=== PATIENT | female | born 1990 | race African-American/Black ===

== ENCOUNTER 2020-09-28 11:46 | Inpatient (IN) | payer OTHER ==
[~2020-09-28] VITALS: Ht 157.5 cm; Wt 78.1 kg
[2020-09-28] MEDS ORDERED: STUACAP PO (12:02)
[2020-09-28] MEDS: LR 1,000 ML IV SCH (12:10)
[2020-09-28] MEDS ORDERED: PENICILLIN G POTASSIUM IV 5 MU in D5W MINI-BAG PLUS 100 ML IV STA (12:17)
[2020-09-28 12:50] VITALS: BP 111/63
[2020-09-28 13:12] LABS: HEMATOCRIT 41.5 % (36.0-47.0); HEMOGLOBIN 13.5 g/dl (12.0-15.5); MEAN CORPUSCULAR HEMOGLOBIN 27.6 pg (27.0-33.0); MEAN CORPUSCULAR HGB CONC 32.5 g/dl (32.0-36.5); MEAN CORPUSCULAR VOLUME 84.9 fl (80.0-96.0); PLATELET COUNT, AUTOMATED 259 10^3/uL (150-450); RED BLOOD COUNT 4.89 10^6/uL (4.00-5.40); WHITE BLOOD COUNT 10.4 10^3/uL (4.0-10.0)
--- NOTE | 2020-09-28 13:47 | HPEPDOC ---
Obstetrical History & Physical General Date of Admission Sep 28, 2020 at 11:46 History of Present Illness 30yo A1GDM admitted directly form clinic for gestational diabetes with unknown control, limited care in the third trimester, declined NST, BPP 2/8, ANTOLIN 11.0, cephalic presentation. Chief Complaint: Induction of labor, Other (Gestational Diabetes with unknown control, GBS unknown, limited care in the third trimester) Information Provided By: Patient Age: 30 : 3 Term: 2 Pre-term: 0 Abortions: 0 Livin Care Care: Other (Routine care completed through 34 weeks gestation, ap propriate f/u in third trimester and diabetes screening ) Dating Final EDC: Sep 26, 2020 Final EDC for Daily Update: Sep 26, 2020 Final EDC by: LMP LMP: Dec 21, 2019 EGA at Admission: 40 (+2) Antepartum Course Diagnos(e)s Gestational diabetes with unknown control, GBS unknown Height (inches): 62 Pre- weight (lbs.): 144 Admission Weight (lbs.): 172 Change in Weight (lbs.): 28 Past Medical History Past Obstetrical History #1: Past Obstetrical History: Multigravida Date of Delivery: Nov 27, 2017 Gestation: 39 Type of Delivery: Spontaneous Vaginal Del. 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, History of STD (chlamydia treated 2009, gonorrhea) Past Medical History Medical History depression, recurrent pilonidal cyst Surgical History: Other (left knee arthroscopy) Family History Significant Family History: No pertinent family hx Social History Marital Status: Family situation: Spouse/partner home Psychosocial History: Depression * Smoker: non-smoker Alcohol: Denies Drugs: denies Abuse Violence Screening Have you been hit/kicked/slapp: No Have you been sexually assault: No Imunizations Tdap status: current Influenza Status: needs Allergies Coded Allergies: Sulfa (Sulfonamide Antibiotics) (Verified Allergy, Mild, hives, 09/28/20) Medications Miscellaneous Medications Pnv No.63/Iron,Carb/Folic/Dha (Miles One Capsule) 1 Each Capsule, 1 CAP PO Physical Examination Physical Examination GENERAL: Alert and oriented times three. BREAST: . ABDOMEN: Gravid and non-tender to touch. FETUS: Is vertex (VTX) by sterile vaginal examination (SVE), fetus is vertex (VTX) by Angel. HEART RATE: Regular rate and rhythm. LUNGS: Clear to auscultation (CTA). EXTREMITIES: No edema. No clonus. Other physical findings EFW 3700gm by miguel Laboratory Data 24H LABS Laboratory Tests 2 09/28/20 12:14: Bedside Glucose (Misc Panel) 106H 09/28/20 12:28: Serology Scanned Report Hepatitis B Testing Pertinent Laboratoy Data Blood Type: A+ RBC Antibody Screen: Negative HIV: Negative Hepatitis B: Negative Rapid Plasma Reagin: Nonreactive Rubella: Immune Varicella: Immune Chlamydia/Gonorrhea: Negative Group B Streptococcus: Unknown Cystic Fibrosis: Negative Anatomy Ultrasound Ultrasound Date: Aug 17, 2020 Placenta Location: Anterior Normal Anatomy: Yes Placenta Previa: No Estimated Weight (grams): 2187 Steroid Therapy Steroid Therapy: No Vaginal Examination Dilation: 4 cm Effacement: 70% Station: -3 Cervical Consistency: Medium Cervical Position: Posterior Presentation: Cephalic presentation Assessment Variability: Moderate Accelerations: Positive Decelerations: Variable Tocometer Contractions: Yes Frequency: irregular Duration: greater than 60 seconds Strength: palpated as mild, resting tone palp/soft Multi-drug resistant Organism: No history of MDRO Assessment/Plan Assessment Cindy is a 30-year-old (G)3 para (P)2-0-0-2 at 40+2 weeks by LMP. Presents to Labor and Delivery (L&D) for direct admission for IOL for GDM with unknown control and BPP 2/8. Plan Admit and orient. 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 Diet: diabetic, then clear liquids with IOL. Group B Streptococcus (GBS) unk, initiate GBS prophylaxis. Labs and intravenous (IV) per unit protocol, bedside finger stick, HA1C on admission. Counseled on Pitocin and induction of labor (IOL). Lactated Ringers (LR): 125 mL/hr. Anticipate [normal spontaneous delivery ()]. Continuous efm x2, monitor fo change in or maternal status. May eat a light lunch prior to initiating pitocin. Initiate pitocin induction and titrate per protocol. C-S as appropriate. Labor and Delivery Counseling Patient counseled on indication for induction, methods of induction, rationale for monitoring glucose, need for monitoring infant after delivery for transition. Pt expressed understanding of instructions and consent for induction. MAU WOLF CNM Sep 28, 2020 13:47
[2020-09-28] MEDS ORDERED: OXYTOCIN DRIP 30 UNITS in IV 1 EA IV SCH ×2 (14:00→23:24)
[2020-09-28 15:19] VITALS: BP 105/66
[2020-09-28 15:59] VITALS: BP 128/74
--- NOTE | 2020-09-28 16:00 | REP ---
INDICATION: GROWTH US. Patient being induced. COMPARISON: None. TECHNIQUE: Transabdominal obstetric sonography. FINDINGS: Scanning through the gravid uterus demonstrates a viable single intrauterine gestation in cephalic lie. motion is observed and heart rate is recorded at 153 beats per minute. A anterior placenta is seen, grade 3, without evidence of placenta previa. Amniotic fluid is subjectively normal. Closed cervical length could not be measured due to low head position. Amniotic fluid is subjectively normal. ANTOLIN is normal at 12.7 cm.. No extrauterine abnormality is observed. The following anatomic structures are identified today and felt to be unremarkable: diaphragm, left-sided stomach, abdominal wall cord insertion, kidneys and urinary bladder, three-vessel cord. head measurements are felt to be suboptimal due to low position.. Biometry chart: BPD 9.3 cm, 37 weeks 4 days Head circumference 33.0 cm, 37 weeks 4 days Abdominal circumference 36.3 cm, 40 weeks 1 day Femur length 8.0 cm, 41 weeks 0 days Humeral length 6.9 cm, 39 weeks 6 days HC AC ratio normal 0.91 Cephalic index normal 0.80 Estimated weight 3856 g, 8 lb 8 oz, 87th percentile for 40 weeks 2 days SD ratio in the umbilical cord artery by Doppler normal, 2.21 IMPRESSION: Viable single intrauterine gestation at 39 weeks 2 days by today's composite sonographic criteria. BURKE by today's sonography October 03, 2020. No complication identified. Estimated weight in the 87th percentile. <Electronically signed by Ron Wilder > 09/28/20 [id number]
[2020-09-28] MEDS ORDERED: PENICILLIN G POTASSIUM IV 2.5 MU in IV 1 EA IV SCH ×2 (16:30→20:30)
[2020-09-28] MEDS ORDERED: FLEET ENEMA PR PRN (17:45)
[2020-09-28 18:13] VITALS: BP 118/65
[2020-09-28 18:54] VITALS: BP 128/66
--- NOTE | 2020-09-28 18:54 | IPNPDOC ---
Obstetrical Progress Note Date of Service Sep 28, 2020 Subjective Pt c/o rectal pressure and discomfort with contractions Objective Vital Signs Date Time Temp Pulse Resp B/P (MAP) Pulse Ox O2 Delivery O2 Flow Rate FiO2 09/28/20 18:13 98.4 117 18 118/65 (82) Room Air Assessment Heart Rate (FHR): 140 Variability: Moderate Accelerations: Positive Decelerations: Early Tocometer Contractions: Yes Frequency: regular (q1-5 min, coupling noted on 6mu pitocin) Duration: greater than 60 seconds Strength: palpated as moderate Sterile Vaginal Examination Dilation: 5 cm Effacement (%): 80% Station: -3 Cervical Consistency: Medium Cervical Position: Posterior Postion/Presentation: Cephalic presentation Assessment and Plan Age: 30 : 3 Term: 2 Pre-term: 0 Abortions: 0 Livin EGA at Admission: 40 (+2) Status: Reassuring Group B Streptococcus: Unknown Anticipate: Vaginal Delivery Additional Comments Hard stool palpated through the vaginal wall on exam. Pt states difficulty passing stool and discomfort. Reviewed options for care, patient desires an enema. lr @125ml/hr, continuous efm x2, continue pitocin induction and titrate per protocol, monitor for change in or maternal status, provide fleets enema x1 prn constipation, continue GBS prophylaxis, evaluate for change as indicated, consider AROM, anticipate vaginal delivery MAU WOLF CNM Sep 28, 2020 18:54
--- NOTE | 2020-09-28 19:54 | IPNPDOC ---
Obstetrical Progress Note Date of Service Sep 28, 2020 Subjective Pt c/o increased discomfort with contractions, pressure and bloody show Objective Vital Signs Date Time Temp Pulse Resp B/P (MAP) Pulse Ox O2 Delivery O2 Flow Rate FiO2 09/28/20 18:54 98.7 127 18 128/66 (86) Room Air Assessment Heart Rate (FHR): 130 Variability: Moderate Accelerations: Positive Decelerations: None Tocometer Contractions: Yes Frequency: regular, every 2-2 min. (on 10mu pitocin) Duration: greater than 60 seconds Strength: palpated as strong Sterile Vaginal Examination Dilation: 6 cm (arom clear with exam) Effacement (%): 80% Station: -2 Cervical Consistency: Soft Cervical Position: Posterior Postion/Presentation: Cephalic presentation Assessment and Plan Age: 30 : 3 Term: 2 Pre-term: 0 Abortions: 0 Livin EGA at Admission: 40 (+2) Status: Reassuring Group B Streptococcus: Unknown Anticipate: Vaginal Delivery Additional Comments lr@125 ml/hr, continue pitocin augmentation per protocol, continue gbs prophylaxis, continuous efm x2, monitor for change in or maternal status, encourage maternal movement, anticipate vaginal delivery. MAU WOLF CNM Sep 28, 2020 19:54
[2020-09-28] MEDS ORDERED: **PENDING PCN ENTRY XX SCH (21:00)
[2020-09-28] MEDS ORDERED: FENTANYL 2MCG/ML ROPIVACAINE 0.2% IN 0.9% NACL 100ML IVBAG As Ordered ONE (21:44)
--- NOTE | 2020-09-28 21:54 | IPNPDOC ---
Obstetrical Progress Note Date of Service Sep 28, 2020 Subjective Pt c/o increased pain and pressure with urge to push Objective Vital Signs Date Time Temp Pulse Resp B/P (MAP) Pulse Ox O2 Delivery O2 Flow Rate FiO2 09/28/20 18:54 98.7 127 18 128/66 (86) Room Air Assessment Heart Rate (FHR): 140 Variability: Moderate Accelerations: Positive Decelerations: Variable Tocometer Contractions: Yes Frequency: every 1-3 min. (on 12mu pitocin) Duration: greater than 60 seconds Strength: palpated as strong Sterile Vaginal Examination Dilation: 8 cm (OP presentation) Effacement (%): 90% Station: -2 Cervical Consistency: Soft Cervical Position: Posterior Postion/Presentation: Cephalic presentation Assessment and Plan Age: 30 : 3 Term: 2 Pre-term: 0 Abortions: 0 Livin EGA at Admission: 40 (+2) Status: Reassuring Group B Streptococcus: Unknown Anticipate: Vaginal Delivery Additional Comments Pt questioning options for pain. reviewed continued comfort measures, iv pain medication, and epidural anesthesia. Pt expressed consideration for epidural. IV fluid bolus initiated by nursing staff. Pt assisted with several position changes to facilitate rotation and decent over 25 minutes. Pt positioned in Welchers and coached through contractions, then rotated to an exaggerated right lateral position. Patient then called out with a request for epidural. Continue pitocin augmentation, lr @125ml/hr, continuous efm x2, monitor for change in or maternal status, may have epidural anesthesia as desired, evaluate for change as indicated, anticipate vaginal delivery MAU WOLF CNM Sep 28, 2020 21:53
[2020-09-28 23:24] LABS: CORD GAS ABE A -8.5; CORD GAS ABE V -6.5; CORD GAS HCO3 V 21.4 MEQ/L; CORD GAS O2 SAT A 65.5 %; CORD GAS O2 SAT V 83.4 %; CORD GAS PCO2 V 51.4 mmHg; CORD GAS PH A 7.098 UNITS; CORD GAS PH V 7.237 UNITS; CORD GAS PO2 A 37.3 mmHg; CORD GAS PO2 V 46.8 mmHg; CORD GAS SBC V 18.9 MEQ/L; CORD GAS TCO2 A 25.3 MEQ/L
--- NOTE | 2020-09-28 23:24 | DNPDOC ---
[facility] Delivery Note Delivery Note DATE OF DELIVERY: [id number] PREDELIVERY DIAGNOSIS: 40-1/7 weeks' gestation and labor. POST DELIVERY DIAGNOSIS: Delivered. PROCEDURE: Spontaneous vaginal delivery. SKETCHER: Khloe Wolf ANESTHESIA: epidural. ESTIMATED BLOOD LOSS: 450 mL. FINDINGS: 8 pound 10 ounce female infant Michele, Score 2//9, no nuchal cord, shoulder dystocia. DELIVERY SUMMARY: Patient is a 30-year-old 3 now para 3-0-0-3 who was admitted to labor and delivery for IOL for BPP 12/06. Pt c/o uncontrollable pushing after epidural placement and was found to be C/C/0. Brisk decent was made to with maternal pushing efforts then a slowing of the head was noted. Additional nursing staff was called in preparation. The head delivered in OA with restitution to JAH. The patient was positioned in Karen without improvement. Suprapubic was applied directionally and the woodscrew maneuver attempted. Dr. Jaramillo was called to the room for additional assistance as an attempt was made to deliver the posterior arm. Dr. Jaramillo was able to deliver the posterior shoulder and arm successfully. The anterior shoulder delivered easily followed quickly by the corpus. The female infant was placed immediately on the maternal abdomen, the cord clamped x2 and cut by RAULITO. The was then passed to the waiting nursing team for NRP. Cord gasses were collected and sent. Pitocin infusion was initiated per protocol. The placenta delivered spontaneously intact in Benoit presentation with an initial moderate amount of bleeding and trailing membranes and significant calcification noted. The cervix was swept for an additional small portion of membranes and a clot, the fundus massaged until firm. A small second degree midline laceration was noted on evaluation. The laceration was repaired using 3-0 vicryl with the Angeles method. An additional sweep of the vagina and cervix was completed for several small clots. The fundus firmed appropriately. Cindy entered the recovery phase in stable condition. KHLOE WOLF CNM Sep 28, 2020 23:24
[2020-09-28] MEDS ORDERED: DOCUSATE SODIUM 100MG CAPSULE PO PRN (23:30)
[2020-09-28] MEDS ORDERED: METHYLERGONOVINE MALEATE 0.2 MG TAB PO PRN (23:30)
[2020-09-28] MEDS ORDERED: BENZOCAINE 20% HEMORRHOIDAL OINTMENT 28GM TUBE TOP PRN (23:30)
[2020-09-28] MEDS ORDERED: MEASLES,MUMPS,RUBELLA VACCINE INJ (MMR-II) (90707) SC SCH (23:30)
[2020-09-28] MEDS ORDERED: NALOXONE INJ 0.4MG/1ML VIAL (J2310 PER 1MG) IV PRN (23:45)
[2020-09-28] MEDS ORDERED: EPIDURAL/PCA KEYS XX PRN (23:45)
[2020-09-28] MEDS ORDERED: FENTANYL/ROPIVACAINE/NACL BAG 100 ML EPIDURAL SCH (23:45)
[2020-09-28] MEDS ORDERED: diphenhydrAMINE 50MG/ML VIAL (J1200) IV PRN (23:45)
[2020-09-28] MEDS ORDERED: ePHEDrine SULFATE 25 MG/5 ML(5MG/ML) SYRINGE IV PRN (23:45)
[2020-09-28] MEDS ORDERED: ONDANSETRON 4MG/2ML VIAL IV PRN (23:45)
[2020-09-28] MEDS ORDERED: EPIDURAL COMMENT XX SCH (23:45)
[2020-09-28] MEDS ORDERED: REFRIGERATOR IV KEYS XX PRN (23:45)
[2020-09-28] MEDS ORDERED: LACTATED RINGER'S 1000 ML IV PRN (23:45)
--- NOTE | 2020-09-28 23:47 | DNPDOC ---
[facility] Delivery Note Delivery Note DATE OF DELIVERY: September 28, 2020 PREDELIVERY DIAGNOSIS: 40-2/7 weeks, A1GDM induction. POST DELIVERY DIAGNOSIS: Delivered. PROCEDURE: Spontaneous vaginal delivery. 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 Mavis Roberts FINDINGS: 8 pound 10 ounce [female infant, Score 2/9. DELIVERY SUMMARY: I was called to assist with delivery of this patient when the head delivered. A shoulder dystocia was encountered. I entered the room after 1- 2 minutes. RAULITO Doran had tried Karen, suprapubic pressure, and Wood's maneuvers. I was able to hook the posterior arm, and rotate the baby to allow delivery of the anterior (left) shoulder. There did appear to be decreased movement of the left arm after delivery. The left hand was noted to move. The gridcap machine operator then completed delivery of the placenta. MAVIS ROBERTS MD Sep 28, 2020 23:47
[2020-09-29 01:20] VITALS: BP 109/67
[2020-09-29 06:00] VITALS: BP 107/63
[2020-09-29] MEDS: IBUPROFEN 800 MG TAB PO PRN ×2 (06:05→16:53)
[2020-09-29] MEDS: LR 1,000 ML IV SCH (07:06)
[2020-09-29] MEDS: PRENATAL VITAMINS CHEWABLE TABLET PO SCH (07:35)
[2020-09-29] MEDS: ACETAMINOPHEN TAB 650MG DOSE (2X325MG) PO PRN ×3 (07:36→22:48)
[2020-09-29 18:00] VITALS: BP 103/68
[2020-09-30] MEDS: ACETAMINOPHEN TAB 650MG DOSE (2X325MG) PO PRN (03:22)
[2020-09-30 05:45] VITALS: BP 95/54
[2020-09-30] MEDS: PRENATAL VITAMINS CHEWABLE TABLET PO SCH (07:33)
[2020-09-30] MEDS: IBUPROFEN 800 MG TAB PO PRN (07:33)
[2020-09-30] MEDS ORDERED: ACET1TAB55 PO (07:51)
[2020-09-30] MEDS ORDERED: IBUP80TA PO (07:51)
--- NOTE | 2020-09-30 07:54 | DS.PDOC ---
Discharge Summary General Date of Admission Sep 28, 2020 at 11:46 Date of Discharge Sep 30, 2020 Discharge Summary HOSPITAL COURSE: Ms. Perez is a 30 yo G3 now P3 who underwent a on 28Sep2020 after being admitted for an IOL gestational diabetes of unclear control. There was a shoulder dystocia with delivery that was resolved. Mother and baby are both doing well. Her course was otherwise unremarkable. On her day of discharge she met all appropriate discharge criteria. She was ambulating, voiding, tolerating a regular diet, and had minimal lochia. DISCHARGE MEDICATIONS: Please see below. ALLERGIES: Please see below. PHYSICAL EXAMINATION ON DISCHARGE: VITAL SIGNS: Please see below. GENERAL: AAOX3, NAD ABDOMINAL EXAMINATION: Fundus firm at U-2. No fundal tenderness EXTREMITIES: No edema PSYCHIATRIC EXAMINATION: Affect appropriate LABORATORY DATA: Please see below. ACTIVITY: Pelvic rest for 6 weeks DIET: Regular DISCHARGE PLAN: Discharge home DISPOSITION: Discharge home on 30Sep2020 . DISCHARGE INSTRUCTIONS: 1. Nothing in the vagina for 6 weeks ITEMS TO FOLLOWUP ON ON OUTPATIENT: 1. Call to schedule a visit for 6 weeks post delivery DISCHARGE CONDITION: Stable. TIME SPENT ON DISCHARGE: Greater than 20 minutes. Mayito Pete DO Vital Signs/I&Os Vital Signs Date Time Temp Pulse Resp B/P (MAP) Pulse Ox O2 Delivery O2 Flow Rate FiO2 09/30/20 05:45 97.6 74 18 95/54 (68) 100 Room Air Discharge Medications Scheduled PRN Acetaminophen (Acetaminophen) 325 Mg Tablet, 650 MG PO Q4HP PRN for PAIN LEVEL 1-5 Ibuprofen (Ibuprofen) 800 Mg Tablet, 800 MG PO Q8HP PRN for PAIN LEVEL 6-10 Miscellaneous Medications Pnv No.63/Iron,Carb/Folic/Dha (Miles One Capsule) 1 Each Capsule, 1 CAP PO, (Reported) Allergies Coded Allergies: Sulfa (Sulfonamide Antibiotics) (Verified Allergy, Mild, hives, 09/28/20) MAYITO PETE DO Sep 30, 2020 07:54
== END 2020-09-30 12:29 | disposition home or self-care (01) | DRG 807 ==
LOC: M LDI 11:46 → M OBS 09-29 01:15
PROVIDERS: ADMIT Registered Nurse; ATTEND Specialist
PROC: 10E0XZZ Delivery of Products of Conception, External Approach (ICD-10-PCS; principal; 2020-09-28)
PROC: 10D17Z9 Manual Extraction of Products of Conception, Retained, Via Natural or Artificial Opening (ICD-10-PCS; 2020-09-28)
PROC: 0KQM0ZZ Repair Perineum Muscle, Open Approach (ICD-10-PCS; 2020-09-28)
PROC: 3E033VJ Introduction of Other Hormone into Peripheral Vein, Percutaneous Approach (ICD-10-PCS; 2020-09-28)
DX: O24.429 Gestational diabetes mellitus in childbirth, unspecified control (principal); Z37.0 Single live birth; Z3A.40 40 weeks gestation of pregnancy; O48.0 Post-term pregnancy; K59.00 Constipation, unspecified; O99.62 Diseases of the digestive system complicating childbirth; O66.0 Obstructed labor due to shoulder dystocia; O70.1 Second degree perineal laceration during delivery; O73.1 Retained portions of placenta and membranes, without hemorrhage